=== PATIENT | male | born 1960 | race Caucasian/White ===

== ENCOUNTER → 2016-03-03 | Outpatient (CLI) | payer OTHER ==
--- NOTE | 2016-03-03 15:55 | DX ---
Chest, Two Views 1200 hours History: R 06.6, hiCough. Comparison: None. Findings: Cardiac silhouette is within normal range. No pneumonia, congestive heart failure, pleura l effusion, or pneumothorax. Bilateral peribronchial thickening. Impression: 1. Bronchitis. 2. No focal pneumonia.
== END ==
LOC: FIMAGING 11:54
PROVIDERS: ATTEND Family Medicine
DX: R06.6 Hiccough (principal); J40 Bronchitis, not specified as acute or chronic

== ENCOUNTER 2016-08-05 13:53 | Emergency (ER) | payer MEDICAID, OTHER ==
--- NOTE | 2016-08-05 15:58 | EDPHY ---
H & P Time Seen by Provider: 08/05/16 14:50 HPI/ROS: CHIEF COMPLAINT: Finger laceration HISTORY OF PRESENT ILLNESS: this is a 56-year-old male presenting to the emergency department complaining of laceration to left index finger. patient states he was using a angle outer diameter grinder tool 1 hour prior to arrival, outer diameter grinder tool slipped and caught part of left index finger. tetanus up-to-date, denies any other injury REVIEW OF SYSTEMS: Constitutional: No fever, no chills. Eyes: No discharge. no blurred vision Cardiovascular: No chest pain, no palpitations. Respiratory: No cough, no shortness of breath. Gastrointestinal: No abdominal pain, no vomiting. Musculoskeletal: No back pain. left index finger pain with laceration Skin: No rashes. Neurological: No headache. Smoking Status: Never smoked Physical Exam: General Appearance: Alert and no distress. Eyes: Pupils equal and round no injection. Respiratory: Chest is nontender, lungs are clear to auscultation. Cardiac: regular rate and rhythm Gastrointestinal: Abdomen is soft and nontender, no masses Musculoskeletal: Neck is supple and nontender. Extremities: Left index finger tip jagged laceration U shaped anterior aspect, laceration does not involve the nail matrix but does interfere with cuticle. full range of motion flexion and extension no tendon involved Skin: No rashes or lesions. Constitutional: Initial Vital Signs Temperature (C) 36.4 C 08/05/16 13:56 Heart Rate 62 08/05/16 13:56 Respiratory Rate 18 08/05/16 13:56 Blood Pressure 135/84 H 08/05/16 13:56 O2 Sat (%) 97 08/05/16 13:56 O2 Delivery Mode Room Air Allergies/Adverse Reactions: No Known Allergies Allergy (Unverified 08/05/16 13:55) Home Medications: Medication Instructions Recorded Amoxicillin/Clavulanate Pot 875 mg PO BID #14 tab 08/05/16 [Augmentin 875 MG TAB (*)] Lipitor 08/05/16 Tegretol 08/05/16 Wellbutrin 100mg (*) 08/05/16 oxyCODONE/APAP 5/325 [Percocet 1 - 2 tab PO Q6H PRN #10 tab 08/05/16 5/325 (*)] Medical Decision Making Procedures: Procedure: Laceration repair. Verbal consent was obtained from the patient. 2.5 cm laceration on the Left finger tip anterior aspect no nail bed matrix involved. 0.5% bupivacaine without epinephrine 4 mL digital block. The wound was irrigated. There were no deep structures involved. The wound was repaired 5-0 Ethilon #10 sutures placed The procedure was performed by myself. A dressing was applied by our EMT. ED Course/Re-evaluation: discussed ED plan of care: wound irrigation, suture repair 1600: suture repair for wound closure patient tolerated procedure without any complications. discussed discharge instructions with patient keeping wound clean and dry leave initial dressing on for 24 hours. discharge home---> stable Differential Diagnosis: other differential diagnosis considered but not limited to open avulsion fracture, laceration involving tendon, and laceration with foreign body Departure - Departure Disposition: Home, Routine, Self-Care Clinical Impression: Laceration Condition: Good Instructions: Care For Your Stitches (ED), Laceration (ED) Additional Instructions: 1. Have sutures removed in 10 days 2. keep wound clean and dry, leave initial dressing on for 24 hours 3. recommend no [place] water exposure this can increase the risk of infection Referrals: Angel Noyola MD [Primary Care Provider] - As per Instructions Prescriptions: Amoxicillin/Clavulanate Pot [Augmentin 875 MG TAB (*)] 875 mg PO BID #14 tab oxyCODONE/APAP 5/325 [Percocet 5/325 (*)] 1 - 2 tab PO Q6H PRN #10 tab PRN Reason: Pain, Severe
[2016-08-05 16:14] VITALS: BP 122/77; PULSE 63; RESP 16; TEMP 98.1; O2SAT 96
== END 2016-08-05 16:14 | disposition home or self-care (01) ==
PROC: 0HQGXZZ Repair Left Hand Skin, External Approach (ICD-10-PCS; principal; 2016-08-05)
DX: S61.211A Laceration without foreign body of left index finger without damage to nail, initial encounter (principal); W31.2XXA Contact with powered woodworking and forming machines, initial encounter